=== PATIENT | male | born 1955 | race Hispanic/Latino ===

== ENCOUNTER 2018-12-24 18:15 | Emergency (ER) | payer OTHER ==
[2018-12-24] MEDS ORDERED: NACL 0.9% 1000 ML 1,000 ML IV ONE ×2 (19:57→22:00)
[2018-12-24 20:31] LABS: Basophils % (Auto) 0.3 % (0.0-1.8); Eosinophils % (Auto) 0.4 % (0.0-4.3); Hematocrit 23.2 % (35.5-45.6); Hemoglobin 7.3 gm/dl (11.8-15.2); Lymphocytes # (Auto) 0.6 K/mm3 (1.2-5.4); Lymphocytes % (Auto) 5.3 % (13.4-35.0); Mean Corpuscular HGB Conc 32 % (32-34); Mean Corpuscular Volume 75 fl (84-94); Monocytes # (Auto) 0.9 K/mm3 (0.0-0.8); Monocytes % (Auto) 7.5 % (0.0-7.3); Platelet Count 381 K/mm3 (140-440); Red Blood Count 3.09 M/mm3 (3.65-5.03)
[2018-12-24 20:33] LABS: Red Cell Distribution Width 20.2 % (13.2-15.2)
--- NOTE | 2018-12-24 20:40 | Emergency Department Report ---
ED General Adult HPI - General Chief complaint: Syncope Stated complaint: SYNCOPE Time Seen by Provider: 12/24/18 19:43 Source: EMS Mode of arrival: Stretcher Limitations: Language Barrier - History of Present Illness Initial comments: Patient presents to the emergency department for a near-syncopal episode. The patient was recently diagnosed with liver cancer and has 2 pet scan is scheduled for tomorrow at [place]. Patient was recently discharged from family on of last week. Today the patient became hypotensive after standing with systolic BP of 60. Patient denies any chest pain, shortness breath, or abdominal pain. -: Sudden Severity scale (0 -10): 0 Consistency: now resolved Improves with: none Worsens with: none Associated Symptoms: denies other symptoms Treatments Prior to Arrival: none - Related Data Home Medications Medication Instructions Recorded Confirmed Last Taken Omeprazole 40 mg PO DAILY 12/24/18 12/24/18 Unknown Allergies Allergy/AdvReac Type Severity Reaction Status Date / Time No Known Allergies Allergy Unverified 12/24/18 19:40 ED Review of Systems ROS: Stated complaint: SYNCOPE Other details as noted in HPI Comment: All other systems reviewed and negative Constitutional: denies: chills, fever Eyes: denies: eye pain, eye discharge, vision change ENT: denies: ear pain, throat pain Respiratory: denies: cough, shortness of breath, wheezing Cardiovascular: denies: chest pain, palpitations Endocrine: no symptoms reported Gastrointestinal: denies: abdominal pain, nausea, diarrhea Genitourinary: denies: urgency, dysuria Musculoskeletal: denies: back pain, joint swelling, arthralgia Skin: denies: rash, lesions Neurological: denies: headache, weakness, paresthesias Psychiatric: denies: anxiety, depression Hematological/Lymphatic: denies: easy bleeding, easy bruising ED Past Medical Hx - Past Medical History Previous Medical History?: Yes Hx of Cancer: Yes (Liver) Additional medical history: melanoma - Surgical History Past Surgical History?: Yes Hx Appendectomy: Yes - Social History Smoking Status: Never Smoker Substance Use Type: None - Medications Home Medications: Home Medications Medication Instructions Recorded Confirmed Last Taken Type Omeprazole 40 mg PO DAILY 12/24/18 12/24/18 Unknown History ED Physical Exam - General Limitations: Language Barrier General appearance: alert, in no apparent distress - Head Head exam: Present: atraumatic, normocephalic - Eye Eye exam: Present: normal appearance, PERRL, EOMI - ENT ENT exam: Present: mucous membranes moist - Neck Neck exam: Present: normal inspection - Respiratory Respiratory exam: Present: normal lung sounds bilaterally. Absent: respiratory distress, wheezes, rales, rhonchi - Cardiovascular Cardiovascular Exam: Present: regular rate, normal rhythm. Absent: systolic murmur, diastolic murmur, rubs, gallop - GI/Abdominal GI/Abdominal exam: Present: soft, normal bowel sounds. Absent: distended, tenderness - Rectal Rectal exam: Present: deferred - Extremities Exam Extremities exam: Present: normal inspection - Back Exam Back exam: Present: normal inspection - Neurological Exam Neurological exam: Present: alert, oriented X3, CN II-XII intact. Absent: motor sensory deficit - Psychiatric Psychiatric exam: Present: normal affect, normal mood - Skin Skin exam: Present: warm, dry, intact. Absent: rash ED Course Vital Signs 12/24/18 12/24/18 12/24/18 18:58 19:30 19:40 Temperature 98.1 F Pulse Rate 76 75 Respiratory 18 18 Rate Blood Pressure 104/70 Blood Pressure 103/57 [Left] O2 Sat by Pulse 100 98 Oximetry 12/24/18 12/24/18 12/24/18 19:44 19:46 20:00 Temperature Pulse Rate 73 71 74 Respiratory 10 L 16 12 Rate Blood Pressure 108/61 Blood Pressure [Left] O2 Sat by Pulse Oximetry 12/24/18 12/24/18 12/24/18 20:16 20:30 20:45 Temperature Pulse Rate 79 75 85 Respiratory 14 12 12 Rate Blood Pressure 92/53 91/53 Blood Pressure [Left] O2 Sat by Pulse Oximetry 12/24/18 12/24/18 12/24/18 21:00 21:15 21:31 Temperature Pulse Rate 76 89 81 Respiratory 12 21 18 Rate Blood Pressure 107/62 107/62 110/59 Blood Pressure [Left] O2 Sat by Pulse Oximetry 12/24/18 12/24/18 12/24/18 21:45 22:00 22:15 Temperature Pulse Rate 81 75 77 Respiratory 18 15 15 Rate Blood Pressure 88/49 103/63 103/63 Blood Pressure [Left] O2 Sat by Pulse Oximetry ED Medical Decision Making - Lab Data Result diagrams: 12/24/18 19:59 01/31/19 19:59 Lab Results 12/24/18 12/24/18 12/24/18 Range/Units 19:59 19:59 21:43 WBC 11.7 H (4.5-11.0) K/mm3 RBC 3.09 L (3.65-5.03) M/mm3 Hgb 7.3 L (11.8-15.2) gm/dl Hct 23.2 L (35.5-45.6) % MCV 75 L (84-94) fl MCH 24 L (28-32) pg MCHC 32 (32-34) % RDW 20.2 H (13.2-15.2) % Plt Count 381 (140-440) K/mm3 Lymph % (Auto) 5.3 L (13.4-35.0) % [place] % (Auto) 7.5 H (0.0-7.3) % Eos % (Auto) 0.4 (0.0-4.3) % Baso % (Auto) 0.3 (0.0-1.8) % Lymph # 0.6 L (1.2-5.4) K/mm3 [place] # 0.9 H (0.0-0.8) K/mm3 Eos # 0.0 (0.0-0.4) K/mm3 Baso # 0.0 (0.0-0.1) K/mm3 Seg Neutrophils % 86.5 H (40.0-70.0) % Seg Neutrophils # 10.1 H (1.8-7.7) K/mm3 Sodium 134 L (137-145) mmol/L Potassium 4.5 (3.6-5.0) mmol/L Chloride 98.8 (98-107) mmol/L Carbon Dioxide 28 (22-30) mmol/L Anion Gap 12 mmol/L BUN 18 (9-20) mg/dL Creatinine 1.1 (0.8-1.5) mg/dL Estimated GFR > 60 ml/min BUN/Creatinine Ratio 16 % Glucose 108 H (75-100) mg/dL Calcium 8.3 L (8.4-10.2) mg/dL Total Bilirubin 0.50 (0.1-1.2) mg/dL AST 15 (5-40) units/L ALT 15 (7-56) units/L Alkaline Phosphatase 54 (35-129) units/L Troponin T < 0.010 (0.00-0.029) ng/mL Total Protein 6.6 (6.3-8.2) g/dL Albumin 2.9 L (3.9-5) g/dL Albumin/Globulin Ratio 0.8 % Urine Color Yellow (Yellow) Urine Turbidity Clear (Clear) Urine pH 5.0 (5.0-7.0) Ur Specific [place] 1.008 (1.003-1.030) Urine Protein <15 mg/dl (Negative) mg/dL Urine Glucose (UA) Neg (Negative) mg/dL Urine Ketones Neg (Negative) mg/dL Urine Blood Neg (Negative) Urine Nitrite Neg (Negative) Urine Bilirubin Neg (Negative) Urine Urobilinogen < 2.0 (<2.0) mg/dL Ur Leukocyte Esterase Neg (Negative) Urine WBC (Auto) < 1.0 (0.0-6.0) /HPF Urine RBC (Auto) 1.0 (0.0-6.0) /HPF Urine Mucus Few /HPF 12/24/18 Range/Units 21:57 WBC (4.5-11.0) K/mm3 RBC (3.65-5.03) M/mm3 Hgb (11.8-15.2) gm/dl Hct (35.5-45.6) % MCV (84-94) fl MCH (28-32) pg MCHC (32-34) % RDW (13.2-15.2) % Plt Count (140-440) K/mm3 Lymph % (Auto) (13.4-35.0) % [place] % (Auto) (0.0-7.3) % Eos % (Auto) (0.0-4.3) % Baso % (Auto) (0.0-1.8) % Lymph # (1.2-5.4) K/mm3 [place] # (0.0-0.8) K/mm3 Eos # (0.0-0.4) K/mm3 Baso # (0.0-0.1) K/mm3 Seg Neutrophils % (40.0-70.0) % Seg Neutrophils # (1.8-7.7) K/mm3 Sodium (137-145) mmol/L Potassium (3.6-5.0) mmol/L Chloride (98-107) mmol/L Carbon Dioxide (22-30) mmol/L Anion Gap mmol/L BUN (9-20) mg/dL Creatinine (0.8-1.5) mg/dL Estimated GFR ml/min BUN/Creatinine Ratio % Glucose (75-100) mg/dL Calcium (8.4-10.2) mg/dL Total Bilirubin (0.1-1.2) mg/dL AST (5-40) units/L ALT (7-56) units/L Alkaline Phosphatase (35-129) units/L Troponin T < 0.010 (0.00-0.029) ng/mL Total Protein (6.3-8.2) g/dL Albumin (3.9-5) g/dL Albumin/Globulin Ratio % Urine Color (Yellow) Urine Turbidity (Clear) Urine pH (5.0-7.0) Ur Specific [place] (1.003-1.030) Urine Protein (Negative) mg/dL Urine Glucose (UA) (Negative) mg/dL Urine Ketones (Negative) mg/dL Urine Blood (Negative) Urine Nitrite (Negative) Urine Bilirubin (Negative) Urine Urobilinogen (<2.0) mg/dL Ur Leukocyte Esterase (Negative) Urine WBC (Auto) (0.0-6.0) /HPF Urine RBC (Auto) (0.0-6.0) /HPF Urine Mucus /HPF Lab Results 12/24/18 12/24/18 12/24/18 Range/Units 19:59 19:59 21:43 WBC 11.7 H (4.5-11.0) K/mm3 RBC 3.09 L (3.65-5.03) M/mm3 Hgb 7.3 L (11.8-15.2) gm/dl Hct 23.2 L (35.5-45.6) % MCV 75 L (84-94) fl MCH 24 L (28-32) pg MCHC 32 (32-34) % RDW 20.2 H (13.2-15.2) % Plt Count 381 (140-440) K/mm3 Lymph % (Auto) 5.3 L (13.4-35.0) % [place] % (Auto) 7.5 H (0.0-7.3) % Eos % (Auto) 0.4 (0.0-4.3) % Baso % (Auto) 0.3 (0.0-1.8) % Lymph # 0.6 L (1.2-5.4) K/mm3 [place] # 0.9 H (0.0-0.8) K/mm3 Eos # 0.0 (0.0-0.4) K/mm3 Baso # 0.0 (0.0-0.1) K/mm3 Seg Neutrophils % 86.5 H (40.0-70.0) % Seg Neutrophils # 10.1 H (1.8-7.7) K/mm3 Sodium 134 L (137-145) mmol/L Potassium 4.5 (3.6-5.0) mmol/L Chloride 98.8 (98-107) mmol/L Carbon Dioxide 28 (22-30) mmol/L Anion Gap 12 mmol/L BUN 18 (9-20) mg/dL Creatinine 1.1 (0.8-1.5) mg/dL Estimated GFR > 60 ml/min BUN/Creatinine Ratio 16 % Glucose 108 H (75-100) mg/dL Calcium 8.3 L (8.4-10.2) mg/dL Total Bilirubin 0.50 (0.1-1.2) mg/dL AST 15 (5-40) units/L ALT 15 (7-56) units/L Alkaline Phosphatase 54 (35-129) units/L Troponin T < 0.010 (0.00-0.029) ng/mL Total Protein 6.6 (6.3-8.2) g/dL Albumin 2.9 L (3.9-5) g/dL Albumin/Globulin Ratio 0.8 % Urine Color Yellow (Yellow) Urine Turbidity Clear (Clear) Urine pH 5.0 (5.0-7.0) Ur Specific [place] 1.008 (1.003-1.030) Urine Protein <15 mg/dl (Negative) mg/dL Urine Glucose (UA) Neg (Negative) mg/dL Urine Ketones Neg (Negative) mg/dL Urine Blood Neg (Negative) Urine Nitrite Neg (Negative) Urine Bilirubin Neg (Negative) Urine Urobilinogen < 2.0 (<2.0) mg/dL Ur Leukocyte Esterase Neg (Negative) Urine WBC (Auto) < 1.0 (0.0-6.0) /HPF Urine RBC (Auto) 1.0 (0.0-6.0) /HPF Urine Mucus Few /HPF 12/24/18 Range/Units 21:57 WBC (4.5-11.0) K/mm3 RBC (3.65-5.03) M/mm3 Hgb (11.8-15.2) gm/dl Hct (35.5-45.6) % MCV (84-94) fl MCH (28-32) pg MCHC (32-34) % RDW (13.2-15.2) % Plt Count (140-440) K/mm3 Lymph % (Auto) (13.4-35.0) % [place] % (Auto) (0.0-7.3) % Eos % (Auto) (0.0-4.3) % Baso % (Auto) (0.0-1.8) % Lymph # (1.2-5.4) K/mm3 [place] # (0.0-0.8) K/mm3 Eos # (0.0-0.4) K/mm3 Baso # (0.0-0.1) K/mm3 Seg Neutrophils % (40.0-70.0) % Seg Neutrophils # (1.8-7.7) K/mm3 Sodium (137-145) mmol/L Potassium (3.6-5.0) mmol/L Chloride (98-107) mmol/L Carbon Dioxide (22-30) mmol/L Anion Gap mmol/L BUN (9-20) mg/dL Creatinine (0.8-1.5) mg/dL Estimated GFR ml/min BUN/Creatinine Ratio % Glucose (75-100) mg/dL Calcium (8.4-10.2) mg/dL Total Bilirubin (0.1-1.2) mg/dL AST (5-40) units/L ALT (7-56) units/L Alkaline Phosphatase (35-129) units/L Troponin T < 0.010 (0.00-0.029) ng/mL Total Protein (6.3-8.2) g/dL Albumin (3.9-5) g/dL Albumin/Globulin Ratio % Urine Color (Yellow) Urine Turbidity (Clear) Urine pH (5.0-7.0) Ur Specific [place] (1.003-1.030) Urine Protein (Negative) mg/dL Urine Glucose (UA) (Negative) mg/dL Urine Ketones (Negative) mg/dL Urine Blood (Negative) Urine Nitrite (Negative) Urine Bilirubin (Negative) Urine Urobilinogen (<2.0) mg/dL Ur Leukocyte Esterase (Negative) Urine WBC (Auto) (0.0-6.0) /HPF Urine RBC (Auto) (0.0-6.0) /HPF Urine Mucus /HPF - EKG Data -: EKG Interpreted by Me EKG shows normal: sinus rhythm Rate: normal - Medical Decision Making After 2 L of fluids the patient's orthostatics are as follow Lying heart rate 82 BP 107/69 Sitting heart rate 82 BP 104/71 Standing heart rate 92 BP 108/68 Glucose was also patient's family admission also but a platelet declined because he wanted the father to get his PET scans in the morning Critical care attestation.: If time is entered above; I have spent that time in minutes in the direct care of this critically ill patient, excluding procedure time. ED Disposition Clinical Impression: Orthostatic hypotension, Near syncope Disposition: DC-01 TO HOME OR SELFCARE Is pt being admited?: No Does the pt Need Aspirin: No Condition: Stable Instructions: Hypotension (ED) Additional Instructions: return if worse Referrals: VICENTE ORR MD [Primary Care Provider] - 3-5 Days Time of Disposition: 23:05
--- NOTE | 2018-12-24 20:40 | XRay Report ---
FINAL REPORT PROCEDURE: XR CHEST 1V AP TECHNIQUE: Chest radiograph anteroposterior view. CPT 92007 HISTORY: near syncope COMPARISON: No prior studies are available for comparison. FINDINGS: Heart: Normal. Mediastinum/Vessels: Normal. Lungs/Pleural space: Normal. Bony thorax: No acute osseous abnormality. Life support devices: None. IMPRESSION: No acute cardiopulmonary abnormality.
[2018-12-24 20:49] LABS: Alanine Aminotransferase 15 units/L (7-56); Albumin 2.9 g/dL (3.9-5); BUN/Creatinine Ratio 16; Blood Urea Nitrogen 18 mg/dL (9-20); Calcium 8.3 mg/dL (8.4-10.2); Hemolysis Index 0
[2018-12-24 22:15] LABS: Bilirubin,Urine NEG (Negative); Blood,Urine NEG (Negative); Color,Urine Yellow (Yellow); Mucus,Urine FEW /HPF; Protein,Urine <15 mg/dL mg/dL (Negative); Urobilinogen,Urine < 2.0 mg/dL (<2.0); WBC,Urine < 1.0 /HPF (0.0-6.0)
[2018-12-24 23:26] VITALS: BP 107/69
== END 2018-12-24 23:29 | disposition home or self-care (01) ==
LOC: ED 18:15
DX: I95.1 Orthostatic hypotension (principal); Z85.05 Personal history of malignant neoplasm of liver; Z90.89 Acquired absence of other organs
CPT/HCPCS: 36415; 71045; 80053; 81001; 84484; 85025; 93005; 93010; 96360; 96361; 99284; J7030

== ENCOUNTER 2021-07-16 14:53 | Inpatient (IN) | payer OTHER ==
[2021-07-16] MEDS ORDERED: HYDROcodone/ACETAMINOPHEN 10-325MG TAB PO ONE (17:11)
--- NOTE | 2021-07-16 17:52 | Emergency Department Report ---
Blank Doc - Documentation Documentation: 65-year-old male that presents with left sided hip/back pain status post fall. Denies any other injuries or complaints. 1- This is a initial triage assessment/medical screening only. Full assessment and work-up will be completed once the patient is in proper hospital gown, ED bed and in a private room setting. This initial assessment/diagnostic orders/clinical plan/ treatment(s) is/are subject to change based on pt's health status, clinical progression and re-assessment by fellow clinical providers in the ED. Further treatment and workup at subsequent clinical providers discretion. Patient/guardians urged not to elope from ED as their condition may be serious if not clinically assessed and managed. 2-imaging studies
--- NOTE | 2021-07-16 18:01 | Cat Scan Report ---
CT LUMBAR SPINE WITHOUT CONTRAST INDICATION: Left sided pain after fall today.. TECHNIQUE: Axial CT images of the spine were obtained. Sagittal and coronal reformatted images were produced. Al l CT scans at this location are performed using CT dose reduction for ALARA by means of automated exp osure control. COMPARISON: None available. FINDINGS: ACUTE FRACTURE(S) OR SUBLUXATION: None. SPINAL DEGENERATIVE CHANGES: There is moderate degenerative disc disease at L3-4, L4-5, and L5-S1 wit h disc height loss and reactive endplate sclerosis and osteophyte formation. PARASPINAL SOFT TISSUES: No soft tissue swelling or other acute abnormalities. ADDITIONAL FINDINGS: No significant additional findings. IMPRESSION: 1. No acute fracture or subluxation in the spine in neutral position. Signer Name: Joselo Wilkinson MD Signed: 07/16/2021 5:56 PM Workstation Name: [id number]
--- NOTE | 2021-07-16 18:03 | Cat Scan Report ---
CT PELVIS WITHOUT CONTRAST INDICATION / CLINICAL INFORMATION: Left sided pain after fall today.. TECHNIQUE: Axial CT images were obtained through the pelvis without contrast. All CT scans at this [facility] are performed using CT dose reduction for ALARA by means of automated exposure control. COMPARISON: None available. FINDINGS: BOWEL: There is diverticulosis without diverticulitis. APPENDIX: Not seen PERITONEUM: No free fluid. No free air. No fluid collection. LYMPH NODES: No significant adenopathy. ARTERIES: No significant abnormality. VEINS: No significant abnormality. URINARY BLADDER: No significant abnormality. REPRODUCTIVE ORGANS: No significant abnormality. ADDITIONAL FINDINGS: None. SKELETAL SYSTEM: There is a completely displaced fracture of the left subcapital neck with about quar ter shaft width of superior displacement. IMPRESSION: 1. There is a completely displaced fracture of the left subcapital neck with about quarter shaft widt h of superior displacement. Signer Name: Thanh Lopez DO Signed: 07/16/2021 5:59 PM Workstation Name: [id number]
[2021-07-16] MEDS ORDERED: LACTATED RINGERS 500 ML IV ONE (18:12)
[2021-07-16] MEDS ORDERED: MORPHINE 4 MG/1 ML INJ IV ONE (18:12)
[2021-07-16] MEDS ORDERED: ACETAMINOPHEN 325 MG TAB PO ONE ×2 (18:12→22:19)
--- NOTE | 2021-07-16 18:22 | Emergency Department Report ---
ED Lower Extremity HPI - General Chief Complaint: Fall Stated Complaint: BACK PAINS FALL INJURY Time Seen by Provider: 07/16/21 17:08 Source: patient, family Mode of arrival: Wheelchair Limitations: Physical Limitation - History of Present Illness Initial Comments: The patient was evaluated in the emergency department for symptoms described in the history of present illness. He/she was evaluated in the context of the global COVID-19 pandemic, which necessitated consideration that the patient might be at risk for infection with the virus that causes COVID-19. Institutional protocols and algorithms that pertain to the evaluation of patients at risk for COVID-19 are in a state of rapid change based on information released by regulatory bodies including the CDC and federal and state organizations. These policies and algorithms were followed during the patient's care in the emergency department. Please note that these policies, procedures and recommendations changed on a rapid basis. Primary CARE doctor: Paul ludwig Past medical history: Melanoma, diagnosed in 2019. Up-to-date with COVID-19 vaccination. Patient is accompanied by his son Joe Palomo. The patient has indicated that he would like his son to translate for him, and assist with acquisition of the history of present illness. Please note that this provider is also conversant in Thai. The patient is a 65-year-old gentleman who presents to the ER with traumatic left proximal hip pain after mechanical fall. The pain does not radiate anywhere. The pain increases with palpation and range of motion. The patient's pain decreases with rest. The patient indicates that he had a mechanical fall at work. Prior to the fall, the patient is not having any symptoms. The patient did not hit his head or neck. He denies weakness and numbness. He denies additional injuries and complaints. He specifically denies headache, neck pain, chest pain, abdominal pain, shortness of breath, urinary symptoms, loss of taste and smell, weakness and numbness. Patient has 2 sons Chino Z : [phone] Joe Z: [phone] Complaint: hip injury -: Sudden, hour(s) Injury: Pelvis: Left, Thigh: Left, Leg: Left Type of Injury: blunt Place: work Severity: moderate Improves With: rest Worsens With: movement, palpation Context: fall, direct blow - Related Data Home Medications Medication Instructions Recorded Confirmed Last Taken Omeprazole 40 mg PO DAILY 12/24/18 12/24/18 Unknown Allergies Allergy/AdvReac Type Severity Reaction Status Date / Time No Known Allergies Allergy Verified 07/16/21 17:01 ED Review of Systems ROS: Stated complaint: BACK PAINS FALL INJURY Other details as noted in HPI Constitutional: denies: fever Eyes: denies: eye discharge ENT: denies: epistaxis Respiratory: denies: cough Cardiovascular: denies: chest pain Gastrointestinal: denies: abdominal pain Genitourinary: denies: dysuria Musculoskeletal: arthralgia, myalgia Neurological: denies: weakness ED Past Medical Hx - Past Medical History Hx of Cancer: Yes (M) Additional medical history: melanoma - Surgical History Hx Appendectomy: Yes - Social History Smoking Status: Never Smoker Substance Use Type: None - Medications Home Medications: Home Medications Medication Instructions Recorded Confirmed Last Taken Type Omeprazole 40 mg PO DAILY 12/24/18 12/24/18 Unknown History ED Physical Exam - General Limitations: No Limitations, Physical Limitation General appearance: alert, in no apparent distress - Head Head exam: Present: atraumatic, normocephalic - Eye Eye exam: Present: normal appearance, EOMI. Absent: nystagmus - ENT ENT exam: Present: normal exam, normal orophraynx, mucous membranes moist, normal external ear exam - Neck Neck exam: Present: normal inspection, full ROM. Absent: tenderness, meningis mus - Respiratory Respiratory exam: Present: normal lung sounds bilaterally. Absent: respiratory distress, wheezes, rales, rhonchi, stridor, decreased breath sounds - Cardiovascular Cardiovascular Exam: Present: regular rate, normal rhythm, normal heart sounds. Absent: bradycardia, tachycardia, irregular rhythm, systolic murmur, diastolic murmur, rubs, gallop - GI/Abdominal GI/Abdominal exam: Present: soft. Absent: distended, tenderness, guarding, rebound, rigid, pulsatile mass - Rectal Rectal exam: Present: deferred - Extremities Exam Extremities exam: Present: normal inspection, full ROM (Full range of motion in the bilateral arms, and right leg. Left ankle and knee range of motion intact.) , tenderness (There is proximal left hip and thigh tenderness), other (2+ pulses noted in the bilateral upper and lower extremities. The pelvis is stable. There is left proximal hip tenderness. Bilateral knees and ankles are nontender. Bilateral upper extremities nontender.). Absent: calf tenderness - Back Exam Back exam: Present: normal inspection. Absent: tenderness, CVA tenderness (R), CVA tenderness (L), paraspinal tenderness, vertebral tenderness - Neurological Exam Neurological exam: Present: alert, oriented X3, other (No facial droop. Tongue midline. Extraocular movements intact bilaterally. Facial sensation intact to light touch in V1, V2, V3 distribution bilaterally. 5 and a 5 strength in 4 ext remities. Sensation intact to light touch in 4 extremities.). Absent: motor sensory deficit - Psychiatric Psychiatric exam: Present: normal affect, normal mood - Skin Skin exam: Present: warm, dry, intact, normal color. Absent: rash ED Course Vital Signs 07/16/21 17:05 Temperature 97.6 F Pulse Rate 86 Respiratory 24 Rate Blood Pressure 144/97 O2 Sat by Pulse 99 Oximetry ED Lower Extremity MDM - Lab Data Result diagrams: 07/16/21 18:24 07/16/21 18:24 Vital Signs 07/16/21 17:05 Temperature 97.6 F Pulse Rate 86 Respiratory 24 Rate Blood Pressure 144/97 O2 Sat by Pulse 99 Oximetry Lab Results 07/16/21 07/16/21 07/16/21 Range/Units 18:24 18:24 18:24 WBC 14.9 H (4.5-11.0) K/mm3 RBC 4.80 (3.65-5.03) M/mm3 Hgb 14.6 (11.8-15.2) gm/dl Hct 43.7 (35.5-45.6) % MCV 91 (84-94) fl MCH 30 (28-32) pg MCHC 33 (32-34) % RDW 14.3 (13.2-15.2) % Plt Count 192 (140-440) K/mm3 PT 12.4 (12.2-14.9) Sec. INR 0.88 (0.87-1.13) Sodium 138 (137-145) mmol/L Potassium 4.2 (3.6-5.0) mmol/L Chloride 102.0 (98-107) mmol/L Carbon Dioxide 23 (22-30) mmol/L Anion Gap 17 mmol/L BUN 20 (9-20) mg/dL Creatinine 1.1 (0.8-1.3) mg/dL Estimated GFR > 60 ml/min BUN/Creatinine Ratio 18 % Glucose 113 H (75-100) mg/dL Calcium 9.2 (8.4-10.2) mg/dL Magnesium 1.70 (1.7-2.3) mg/dL Total Creatine Kinase 277 H (55-170) units/L - Radiology Data Radiology results: report reviewed, image reviewed CT PELVIS WITHOUT CONTRAST INDICATION / CLINICAL INFORMATION: Left sided pain after fall today.. TECHNIQUE: Axial CT images were obtained through the pelvis without contrast. All CT scans at this location are performed using CT dose reduction for ALARA by means of automated exposure control. COMPARISON: None available. FINDINGS: BOWEL: There is diverticulosis without diverticulitis. APPENDIX: Not seen PERITONEUM: No free fluid. No free air. No fluid collection. LYMPH NODES: No significant adenopathy. ARTERIES: No significant abnormality. VEINS: No significant abnormality. URINARY BLADDER: No significant abnormality. REPRODUCTIVE ORGANS: No significant abnormality. ADDITIONAL FINDINGS: None. SKELETAL SYSTEM: There is a completely displaced fracture of the left subcapital neck with about quarter shaft width of superior displacement. IMPRESSION: 1. There is a completely displaced fracture of the left subcapital neck with about quarter shaft width of superior displacement. Signer Name: Thanh Lopez DO Signed: 07/16/2021 4:59 PM Workstation Name: [employer] CT LUMBAR SPINE WITHOUT CONTRAST INDICATION: Left sided pain after fall today.. TECHNIQUE: Axial CT images of the spine were obtained. Sagittal and coronal reformatted images were produced. All CT scans at this location are performed using CT dose reduction for ALARA by means of automated exposure control. COMPARISON: None available. FINDINGS: ACUTE FRACTURE(S) OR SUBLUXATION: None. SPINAL DEGENERATIVE CHANGES: There is moderate degenerative disc disease at L3- 4, L4-5, and L5-S1 with disc height loss and reactive endplate sclerosis and osteophyte formation. PARASPINAL SOFT TISSUES: No soft tissue swelling or other acute abnormalities. ADDITIONAL FINDINGS: No significant additional findings. IMPRESSION: 1. No acute fracture or subluxation in the spine in neutral position. Signer Name: Joselo Wilkinson MD Signed: 07/16/2021 4:56 PM Workstation Name: [id number] PELVIS 1 VIEW(S) INDICATION / CLINICAL INFORMATION: left hip pain fall, left femur fracture COMPARISON: CT scan of the pelvis from earlier in the day FIND INGS: BONES / JOINT(S): There is a displaced complete fracture of the subcapital left femur, better evaluated on CT. No significant arthritis. SOFT TISSUES: No significant abnormality. ADDITIONAL FINDINGS: None. Signer Name: Thanh Lopez DO Signed: 07/16/2021 5:51 PM Workstation Name: [id number] LEFT FEMUR 2 VIEW(S) INDICATION / CLINICAL INFORMATION: left femur fx, pain COMPARISON: Pelvic radiograph and pelvic CT from earlier in the day FINDINGS: BONES / JOINT(S): Redemonstrated complete transverse fracture through the subcapital proximal femur. There is superior displacement. No significant arthritis. SOFT TISSUES: No significant abnormality. ADDITIONAL FINDINGS: None. Signer Name: Thanh Lopez DO Signed: 07/16/2021 6:15 PM Workstation Name: [email or web address] - Medical Decision Making Differential diagnosis, including but not limited to: Fall, fracture, dislocation Assessment and plan: 65-year-old gentleman, with isolated left femur fracture status post fall, clinically sober with a GCS of 15, with no injury to the head or cervical spine, who is up-to-date with COVID-19 vaccination, who denies additional medical complaints, who is also neurovascularly intact. There is no midline spinal tenderness or step-offs. CT scan of the lumbar spine, and CT scan of the pelvis were obtained prior to my personal evaluation. CT scan of the lumbar spine negative for acute findings. CT scan of the pelvis shows the following findings: 1. There is a completely displaced fracture of the left subcapital neck with about quarter shaft width of superior displacement. Have discussed the patient's history, physical, imaging findings with our orthopedist on-call, Dr. Vanessa. He requests plain films. He will follow in consultation. Dr. Burkett to admit patient to the medical service. Appropriate laboratory studies ordered. Contacted [facility], and discussed the case with their coordinating physician, Dr. Moncada She has authorized for this patient to be admitted to this medical service. I discussed the plan of care with the patient and his son. They have articulated understanding. All questions answered. Critical care attestation.: If time is entered above; I have spent that time in minutes in the direct care of this critically ill patient, excluding procedure time. ED Disposition Clinical Impression: Fall, Femur fracture, left, COVID-19 vaccine series completed Disposition: 09 ADMITTED INPATIENT Is pt being admited?: Yes Does the pt Need Aspirin: No Condition: Good
[2021-07-16] MEDS ORDERED: ONDANSETRON 4 MG/2 ML INJ IV PRN (18:30)
[2021-07-16] MEDS ORDERED: ALBUTEROL 2.5 MG/3 ML NEBU IH PRN (18:30)
[2021-07-16] MEDS ORDERED: ACETAMINOPHEN 325 MG TAB PO PRN (18:30)
--- NOTE | 2021-07-16 18:30 | History and Physical Report ---
History of Present Illness Chief complaint: I fell History of present illness: 65 YO Male with Obesity, Melanoma presents to ED for evaluation. Patient reports "I fell at work". Patient states that he was in his usual state of health and tripped and fell while at work and landed on his left hip. Patient reports experiencing pain and was unable to rise to a standing position and bear weight on his left leg. Patient transported to [facility] via private vehicle for further care and evaluation of the aforementioned symptoms. The patient was seen and evaluated in the emergency department. Lab and imaging studies revi ewed. Patient underwent CT scan of the left leg and was found to have a left femur fracture. Patient admitted to medical floor. Orthopedic surgery service consulted. Patient has fever, chills, chest pain, palpitation, productive cough, skin rash, recent ill contacts, or known exposure to COVID-19. No prior admission for review. All medication listed at time of admission has been reconciled. Advanced care planning conducted in ED. Past History Past Medical History: cancer Past Surgical History: appendectomy Social history: . denies: smoking, alcohol abuse, prescription drug abuse Family history: hypertension Medications and Allergies Allergies Allergy/AdvReac Type Severity Reaction Status Date / Time No Known Allergies Allergy Verified 07/16/21 17:01 Home Medications Medication Instructions Recorded Confirmed Last Taken Type Omeprazole 40 mg PO DAILY 12/24/18 12/24/18 Unknown History Active Meds: Active Medications Lactated Ringer's (Lactated Ringers) 500 mls @ 999 mls/hr IV BOLUS ONE Stop: 07/16/21 18:42 Review of Systems Constitutional: no weight loss, no weight gain, no chills, no sweats Ears, nose, mouth and throat: no ear pain, no tinnitis, no decreased hearing, no nasal congestion, no nasal discharge, no sinus pressure Cardiovascular: no chest pain, no orthopnea, no palpitations, no lightheadedness, no shortness of breath Respiratory: no cough, no cough with sputum, no hemoptysis, no shortness of breath Gastrointestinal: no abdominal pain, no vomiting, no diarrhea, no change in bowel habits, no hematemesis, no coffee ground emesis Genitourinary Male: no hematuria, no flank pain, no discharge, no urinary frequency, no urinary hesitancy, no nocturia Rectal: no pain, no incontinence, no bleeding Musculoskeletal: no neck stiffness, no shooting arm pain, no arm numbness/tingling, no shooting leg pain, no leg numbness/tingling Integumentary: no rash, no pruritis, no redness, no sores, no wounds, no jaundice, no boils Neurological: no head injury, no transient paralysis, no weakness, no parathesias, no tingling, no seizures, no syncope, no tremors Psychiatric: no anxiety, no memory loss, no hypersomnia, no change in libido, no suicidal ideation, no disorientation Endocrine: no cold intolerance, no heat intolerance, no polydipsia, no polyuria, no excessive sweating Hematologic/Lymphatic: no easy bruising, no easy bleeding, no lymphadenopathy Allergic/Immunologic: no allergic rhinitis, no persistent infections, no anaphylaxis, no angioedema Exam - Constitutional Vitals: Temp Pulse Resp BP Pulse Ox 97.6 F 86 24 144/97 99 07/16/21 17:05 07/16/21 17:05 07/16/21 17:05 07/16/21 17:05 07/16/21 17:05 General appearance: Present: mild distress, obese - EENT Eyes: Present: PERRL ENT: hearing intact, clear oral mucosa - Neck Neck: Present: supple, normal ROM - Respiratory Respiratory effort: normal Respiratory: bilateral: CTA - Cardiovascular Heart Sounds: Present: S1 & S2. Absent: rub, click - Extremities Extremities: pulses symmetrical, No edema, abnormal (Left leg pain) Peripheral Pulses: within normal limits - Abdominal General gastrointestinal: Present: soft, non-tender, non-distended, normal bowel sounds Male genitourinary: Present: normal - Integumentary Integumentary: Present: clear, warm, dry - Musculoskeletal Musculoskeletal: gait normal, strength equal bilaterally - Psychiatric Psychiatric: appropriate mood/affect, intact judgment & insight - Neurologic Neurologic: CNII-XII intact, moves all extremities Results - Labs CBC & Chem 7: 07/16/21 18:24 07/16/21 18:24 Assessment and Plan - Patient Problems (1) Femur fracture, left Current Visit: No Status: Acute Plan to address problem: Orthopedic surgery service consulted, CT scan left lower extremity, pain control, supportive care, physical therapy consulted, patient pending surgical intervention as per surgical team. (2) Obesity hypoventilation syndrome Current Visit: Yes Status: Acute Plan to address problem: Balanced diet, increase physical activity at discharge, outpatient pulmonary follow-up for sleep study. (3) COVID-19 vaccine series completed Current Visit: No Status: Acute (4) DVT prophylaxis Current Visit: Yes Status: Acute Plan to address problem: SCDs bilateral lower extremities while in bed (5) Advance care planning Current Visit: Yes Status: Acute Plan to address problem: Disease education conducted, care plan discussed, diagnosis discussed, prognosis discussed, patient is full code, patient and family knowledge understanding agreement with care plan, +30 minutes.
[2021-07-16 18:47] LABS: Hematocrit 43.7 % (35.5-45.6); Hemoglobin 14.6 gm/dl (11.8-15.2); Mean Corpuscular HGB Conc 33 % (32-34); Mean Corpuscular Volume 91 fl (84-94); Platelet Count 192 K/mm3 (140-440); Red Cell Distribution Width 14.3 % (13.2-15.2)
--- NOTE | 2021-07-16 18:55 | XRay Report ---
PELVIS 1 VIEW(S) INDICATION / CLINICAL INFORMATION: left hip pain fall, left femur fracture COMPARISON: CT scan of the pelvis from earlier in the day FINDINGS: BONES / JOINT(S): There is a displaced complete fracture of the subcapital left femur, better evaluat ed on CT. No significant arthritis. SOFT TISSUES: No significant abnormality. ADDITIONAL FINDINGS: None. Signer Name: Thanh Lopez DO Signed: 07/16/2021 6:51 PM Workstation Name: [id number]
[2021-07-16 18:57] LABS: INR 0.88 (0.87-1.13)
[2021-07-16 18:58] LABS: BUN/Creatinine Ratio 18; Blood Urea Nitrogen 20 mg/dL (9-20); Calcium 9.2 mg/dL (8.4-10.2); Hemolysis Index 10
--- NOTE | 2021-07-16 19:20 | XRay Report ---
LEFT FEMUR 2 VIEW(S) INDICATION / CLINICAL INFORMATION: left femur fx, pain COMPARISON: Pelvic radiograph and pelvic CT from earlier in the day FINDINGS: BONES / JOINT(S): Redemonstrated complete transverse fracture through the subcapital proximal femur. There is superior displacement. No significant arthritis. SOFT TISSUES: No significant abnormality. ADDITIONAL FINDINGS: None. Signer Name: Thanh Lopez DO Signed: 07/16/2021 7:15 PM Workstation Name: [employer]
[2021-07-16] MEDS ORDERED: FLUTICASONE PROPIONATE NASAL SPRAY 16 GM NS PRN (22:01)
[2021-07-16] MEDS ORDERED: LACTATED RINGERS 1,000 ML IV ONE (22:18)
[2021-07-16] MEDS: oxyCODONE /ACETAMINOPHEN 5-325MG TAB PO PRN (22:28)
[2021-07-17] MEDS: HYDROmorphone 1 MG/1 ML INJ IV PRN ×3 (03:09→07:48)
[2021-07-17 06:02] LABS: BUN/Creatinine Ratio 18; Blood Urea Nitrogen 16 mg/dL (9-20); Calcium 8.4 mg/dL (8.4-10.2); Hemolysis Index 41
[2021-07-17] MEDS ORDERED: NON-FORMULARY EACH (Omeprazole [Omeprazole] 40 MG Capsule.Dr) PO SCH (10:00)
[2021-07-17] MEDS: PANTOPRAZOLE 40 MG TAB PO SCH (10:16)
--- NOTE | 2021-07-17 12:21 | Anesthesia Day of Surgery ---
Anesthesia Day of Surgery - Day of Surgery Patient Examined: Yes Patient H&P Reviewed: Yes Patient is NPO: Yes
--- NOTE | 2021-07-17 12:26 | Anesthesia Consultation ---
Anesthesia Consult and Med Hx Date of service: 07/17/21 - Airway Anesthetic Teeth Evaluation: Good ROM Head & Neck: Adequate Mental/Hyoid Distance: Adequate Mallampati Class: Class II Intubation Access Assessment: Good - Pre-Operative Health Status ASA Pre-Surgery Classification: ASA2 Proposed Anesthetic Plan: General - Pulmonary Hx Smoking: No - Cardiovascular System Hx Hypertension: No - Gastrointestinal Hx Gastroesophageal Reflux Disease: Yes - Hematic Hx Anemia: No - Additional Comments Anesthesia Medical History Comments: Spoke with patient's son on the phone who translated
[2021-07-17] MEDS: SODIUM CHLORIDE 0.9% 1000 ML 1,000 ML IV SCH ×2 (12:35→20:43)
[2021-07-17] MEDS ORDERED: TRANEXAMIC ACID 1,000 MG/10 ML ONE (12:40)
[2021-07-17] MEDS ORDERED: MORPHINE 10 MG/1 ML INJ ONE (12:40)
[2021-07-17] MEDS ORDERED: BUPIVACAINE/PF (0.5%) 5 MG/1 ML 30 ML VIAL INFILTRATI ONE ×2 (12:40→13:55)
[2021-07-17] MEDS ORDERED: SODIUM CHLORIDE 0.9% 100 ML ONE (12:41)
[2021-07-17] MEDS ORDERED: KETOROLAC 30 MG/1 ML INJ ONE (12:41)
[2021-07-17] MEDS ORDERED: propofoL 200 MG/20 ML VIAL IV ONE (12:46)
[2021-07-17] MEDS ORDERED: LIDOCAINE MPF (2%) 20 MG/1 ML VIAL 5 ML ONE (12:49)
[2021-07-17] MEDS ORDERED: SUCCINYLCHOLINE CHLORIDE 200 MG/10 ML INJ MDV ONE (12:59)
[2021-07-17] MEDS ORDERED: fentaNYL 100 MCG/2 ML INJ ONE (12:59)
[2021-07-17] MEDS ORDERED: ceFAZolin/STERILE WATER 2 GM/20 ML SYRINGE IV NR (13:00)
[2021-07-17] MEDS ORDERED: HYDROmorphone 1 MG/1 ML INJ ONE (13:38)
[2021-07-17] MEDS ORDERED: SODIUM CHLORIDE 0.9% IRR 1,000 ML BOTTLE IR ONE (13:54)
[2021-07-17] MEDS ORDERED: TRANEXAMIC ACID 1,000 MG/10 ML IV ONE (13:54)
[2021-07-17] MEDS ORDERED: KETOROLAC 30 MG/1 ML INJ IV ONE (13:55)
[2021-07-17] MEDS ORDERED: SODIUM CHLORIDE 0.9% 100 ML IVPB IV ONE (13:55)
[2021-07-17] MEDS ORDERED: MORPHINE 10 MG/1 ML INJ IM ONE (13:55)
[2021-07-17] MEDS ORDERED: PHENYLEPHRINE/NS 1,000 MCG/10 ML SYRINGE (OR USE) IV ONE (14:30)
[2021-07-17] MEDS ORDERED: ONDANSETRON 4 MG/2 ML INJ ONE (14:32)
--- NOTE | 2021-07-17 14:53 | Consultation ---
History of Present Illness - [facility] Consult date: 07/17/21 Consult reason: fracture History of present illness: 65 YO Male with Obesity, Melanoma presents to ED for evaluation. Patient reports "I fell at work". Patient states that he was in his usual state of health and tripped and fell while at work and landed on his left hip. Patient reports experiencing pain and was unable to rise to a standing position and bear weight on his left leg. He was brought to [facility] ED where plain xrays/CT scan revealed displaced left femoral neck fracture... Past History Past Medical History: cancer Past Surgical History: appendectomy Social history: . denies: smoking, alcohol abuse, prescription drug abuse Family history: hypertension Medications and Allergies Allergies Allergy/AdvReac Type Severity Reaction Status Date / Time No Known Allergies Allergy Verified 07/16/21 17:01 Home Medications Medication Instructions Recorded Confirmed Last Taken Type Omeprazole 40 mg PO DAILY 12/24/18 12/24/18 Unknown History Active Meds: Active Medications Acetaminophen (Acetaminophen 325 Mg Tab) 650 mg PO Q4H PRN PRN Reason: Pain MILD(1-3)/Fever >100.5/MOTTA Albuterol (Albuterol 2.5 Mg/3 Ml Nebu) 2.5 mg IH Q4HRT PRN PRN Reason: Shortness Of Breath Cefazolin Sodium (Cefazolin/Sterile Water 2 Gm/20 Ml Syringe) 2 gm IV PREOP NR Stop: 07/17/21 23:59 Fluticasone Propionate (Fluticasone Propionate Nasal [place] 16 Gm) 100 mcg NS QDAY PRN PRN Reason: Congestion Hydromorphone HCl (Hydromorphone 1 Mg/1 Ml Inj) 0.5 mg IV Q3H PRN PRN Reason: Pain , Severe (7-10) Last Admin: 07/17/21 07:48 Dose: 0.5 mg Documented by: Sodium Chloride (Nacl 0.9% 1000 Ml) 1,000 mls @ 75 mls/hr IV DIRECT JOSE Last Admin: 07/17/21 12:35 Dose: 75 mls/hr Documented by: Ondansetron HCl (Ondansetron 4 Mg/2 Ml Inj) 4 mg IV Q8H PRN PRN Reason: Nausea And Vomiting Last Admin: 07/16/21 20:03 Dose: 4 mg Documented by: Oxycodone/Acetaminophen (Oxycodone /Acetaminophen 5-325mg Tab) 1 tab PO Q6H PRN PRN Reason: Pain, Moderate (4-6) Last Admin: 07/16/21 22:28 Dose: 1 tab Documented by: Pantoprazole Sodium (Pantoprazole 40 Mg Tab) 40 mg PO DAILY [facility] Last Admin: 07/17/21 10:16 Dose: 40 mg Documented by: Sodium Chloride (Sodium Chloride 0.9% 10 Ml Flush Syringe) 10 ml IV BID [facility] Last Admin: 07/17/21 10:16 Dose: 10 ml Documented by: Sodium Chloride (Sodium Chloride 0.9% 10 Ml Flush Syringe) 10 ml IV PRN PRN PRN Reason: LINE FLUSH Physical Examination - Physical exam Narrative exam: Significant musculoskeletal findings relates to the left lower extremity here patient is noted to have moderate swelling proximal thigh tender on palpation active range of motion decreased distal neurovascular status intact Eyes: PERRL ENT: Positive: clear oral mucosa Respiratory effort: normal Respiratory: bilateral: CTA Rhythm: regular Heart Sounds: Positive: S1 & S2 General gastrointestinal: Positive: soft, non-tender, non-distended, normal bowel sounds Integumentary: clear, warm, dry Neurologic: Positive: CNII-XII intact, moves all extremities, gait normal. Negative: focal deficits Assessment and Plan Assessment displaced left femoral neck fracture Recommendations plan patient will require operative fixation with hemiarthroplasty
--- NOTE | 2021-07-17 14:57 | Procedure Note ---
Date of procedure: 07/17/21 Pre-op diagnosis: Displaced left femoral neck fracture Post-op diagnosis: same Procedure: [Left] Bipolar Hemiarthroplasty Procedure The patient was brought to the OR and placed on the OR table in supine position following induction and intubation by anesthesia the patient was placed in the [left] lateral decubitus position The [left] hip was then prepped and draped in the usual sterile manner a timeout procedure was done to identify the patient and the correct operative site. Next a lateral incision was made along the proximal femur was taken down sharply through skin and subcutaneous the fascia kin was seen and incised. A Charnley retractor was placed deep within the wound next the anterior capsule was entered the femoral neck fracture was seen the remaining portion of the femoral neck was then osteotomized in line with a stem template The femoral head was retrieved using a corkscrew device measuring the size of the femoral head and a 48 mm diameter was chosen, followed by reaming and broaching to a #9 stem utilizing a neutral neck and a 28 mm head and the construct was then reduced the hip was taken through a range of motion and was found to be stable. All components were removed. Final components were assembled and inserted the hip was then reduced and taken through a range of motion and again it was found to be stable next the wound was copiously irrigated a cocktail mixture of Toradol and morphine. Again and saline was in jected into the surrounding soft tissue for postop pain management following this the wound was closed in a standard routine fashion. Dressings were applied the patient tolerated the procedure there were no complications and he was sent to post anesthesia recovery Anesthesia: GETA Surgeon: TRACI TRACEY (Tiffanie Palacios, 1st assist) Estimated blood loss: other (300cc) Pathology: list (left femoral head sent to path) Specimen disposition: to lab Condition: stable Disposition: PACU
--- NOTE | 2021-07-17 15:36 | Post Anesthesia Evaluation ---
- Post Anesthesia Evaluation Patient Participated: Yes Airway Patent: Yes Stable Respiratory Function: Yes Nausea/Vomiting: No Temp > 96.8F: Yes Pain Manageable: Yes Adequeate Hydration: Yes Anesthesia Complications: No Block Receding Appropriately: Not Applicable Patient on Ventilator: No
--- NOTE | 2021-07-17 16:09 | Progress Note ---
Assessment and Plan Assessment and plan: 65 YO Male with Obesity, Melanoma presents to ED for evaluation. Patient reports "I fell at work". Patient states that he was in his usual state of health and tripped and fell while at work and landed on his left hip. Patient reports experiencing pain and was unable to rise to a standing position and bear weight on his left leg. Patient transported to [facility] via private vehicle for further care and evaluation of the aforementioned symptoms. The patient was seen and evaluated in the emergency department. Lab and imaging studies reviewed. Patient underwent CT scan of the left leg and was found to have a left femur fracture. Patient admitted to medical floor. Orthopedic surgery service consulted. Patient has fever, chills, chest pain, palpitation, productive cough, skin rash, recent ill contacts, or known exposure to COVID-19. No prior admission for review. All medication listed at time of admission has been reconciled. Advanced care planning conducted in ED. 07/17: Continue pain control, Patient preped for surgery, PT/OT following surgery. (1) Femur fracture, left Current Visit: No Status: Acute Plan to address problem: Orthopedic surgery service consulted, CT scan left lower extremity, pain control, supportive care, physical therapy consulted, patient pending surgical intervention as per surgical team. (2) Obesity hypoventilation syndrome Current Visit: Yes Status: Acute Plan to address problem: Balanced diet, increase physical activity at discharge, outpatient pulmonary follow-up for sleep study. (3) COVID-19 vaccine series completed Current Visit: No Status: Acute (4) DVT prophylaxis Current Visit: Yes Status: Acute Plan to address problem: SCDs bilateral lower extremities while in bed (5) Advance care planning Current Visit: Yes Status: Acute Plan to address problem: Disease education conducted, care plan discussed, diagnosis discussed, prognosis discussed, patient is full code, patient and family knowledge understanding agreement with care plan, +30 minutes. History Interval history: Patient seen and examined, resting comfortable. Being prepped for surgery still with pain with any movement of the left hip. Hospitalist Physical - Physical exam Narrative exam: General appearance: Present: mild distress, obese - EENT Eyes: Present: PERRL ENT: hearing intact, clear oral mucosa - Neck Neck: Present: supple, normal ROM - Respiratory Respiratory effort: normal Respiratory: bilateral: CTA - Cardiovascular Heart Sounds: Present: S1 & S2. Absent: rub, click - Extremities Extremities: pulses symmetrical, No edema, abnormal (Left leg pain) Peripheral Pulses: within normal limits - Abdominal General gastrointestinal: Present: soft, non-tender, non-distended, normal bowel sounds Male genitourinary: Present: normal - Integumentary Integumentary: Present: clear, warm, dry - Musculoskeletal Musculoskeletal: gait normal, strength equal bilaterally - Psychiatric Psychiatric: appropriate mood/affect, intact judgment & insight - Neurologic Neurologic: CNII-XII intact, moves all extremities - Constitutional Vitals: Temp Pulse Resp BP Pulse Ox 97.6 F 67 10 L 138/81 98 07/17/21 14:54 07/17/21 15:15 07/17/21 15:15 07/17/21 15:15 07/17/21 15:15 General appearance: Present: mild distress, obese Results - Labs CBC & Chem 7: 07/16/21 18:24 07/17/21 05:27 Labs: Laboratory Last Values WBC 14.9 K/mm3 (4.5-11.0) H 07/16/21 18:24 RBC 4.80 M/mm3 (3.65-5.03) 07/16/21 18:24 Hgb 14.6 gm/dl (11.8-15.2) 07/16/21 18:24 Hct 43.7 % (35.5-45.6) 07/16/21 18:24 MCV 91 fl (84-94) 07/16/21 18:24 MCH 30 pg (28-32) 07/16/21 18:24 MCHC 33 % (32-34) 07/16/21 18:24 RDW 14.3 % (13.2-15.2) 07/16/21 18:24 Plt Count 192 K/mm3 (140-440) 07/16/21 18:24 PT 12.4 Sec. (12.2-14.9) 07/16/21 18:24 INR 0.88 (0.87-1.13) 07/16/21 18:24 Sodium 136 mmol/L (137-145) L 07/17/21 05:27 Potassium 3.8 mmol/L (3.6-5.0) 07/17/21 05:27 Chloride 100.7 mmol/L (98-107) 07/17/21 05:27 Carbon Dioxide 25 mmol/L (22-30) 07/17/21 05:27 Anion Gap 14 mmol/L 07/17/21 05:27 BUN 16 mg/dL (9-20) 07/17/21 05:27 Creatinine 0.9 mg/dL (0.8-1.3) 07/17/21 05:27 Estimated GFR > 60 ml/min 07/17/21 05:27 BUN/Creatinine Ratio 18 % 07/17/21 05:27 Glucose 93 mg/dL (75-100) 07/17/21 05:27 Calcium 8.4 mg/dL (8.4-10.2) 07/17/21 05:27 Magnesium 1.70 mg/dL (1.7-2.3) 07/16/21 18:24 Total Creatine Kinase 277 units/L (55-170) H 07/16/21 18:24 Zimmer/IV: Voiding Method Urinal Active Medications - Current Medications Current Medications: Generic Name Dose Route Start Last Admin Trade Name Freq PRN Reason Stop Dose Admin Acetaminophen 650 mg 07/16/21 18:30 Acetaminophen 325 Mg Tab PO Q4H PRN Pain MILD(1-3)/Fever >100.5/MOTTA Albuterol 2.5 mg 07/16/21 18:30 Albuterol 2.5 Mg/3 Ml Nebu IH Q4HRT PRN Shortness Of Breath Cefazolin Sodium 2 gm 07/17/21 13:00 Cefazolin/Sterile Water 2 Gm/20 Ml Syringe IV 07/17/21 23:59 PREOP NR Fluticasone Propionate 100 mcg 07/16/21 22:01 Fluticasone Propionate Nasal [place] 16 Gm NS QDAY PRN Congestion Hydromorphone HCl 0.5 mg 07/16/21 18:30 07/17/21 07:48 Hydromorphone 1 Mg/1 Ml Inj IV 0.5 mg Q3H PRN Administration Pain , Severe (7-10) Sodium Chloride 1,000 mls @ 75 mls/hr 07/16/21 18:30 07/17/21 12:35 Nacl 0.9% 1000 Ml IV 75 mls/hr DIRECT JOSE Administration Ondansetron HCl 4 mg 07/16/21 18:30 07/16/21 20:03 Ondansetron 4 Mg/2 Ml Inj IV 4 mg Q8H PRN Administration Nausea And Vomiting Oxycodone/Acetaminophen 1 tab 07/16/21 18:30 07/16/21 22:28 Oxycodone /Acetaminophen 5-325mg Tab PO 1 tab Q6H PRN Administration Pain, Moderate (4-6) Pantoprazole Sodium 40 mg 07/17/21 10:00 07/17/21 10:16 Pantoprazole 40 Mg Tab PO 40 mg DAILY JOSE Administration Sodium Chloride 10 ml 07/16/21 22:00 07/17/21 10:16 Sodium Chloride 0.9% 10 Ml Flush Syringe IV 10 ml BID JOSE Administration Sodium Chloride 10 ml 07/16/21 18:30 Sodium Chloride 0.9% 10 Ml Flush Syringe IV PRN PRN LINE FLUSH
[2021-07-17] MEDS ORDERED: KETOROLAC 30 MG/1 ML INJ IV PRN (22:39)
[2021-07-17] MEDS ORDERED: oxyCODONE /ACETAMINOPHEN 5-325MG TAB PO PRN (22:39)
--- NOTE | 2021-07-17 23:47 | XRay Report ---
Left hip single view INDICATION: Left hip pain IMPRESSION: The left hip arthroplasty appears grossly intact. Gas noted within the soft tissues of th e left hip which may be secondary to recent surgery. Signer Name: Navjot Tucker MD Signed: 07/17/2021 11:42 PM Workstation Name: [id number]
[2021-07-18] MEDS: oxyCODONE /ACETAMINOPHEN 5-325MG TAB PO PRN (04:18)
[2021-07-18 06:30] LABS: Hematocrit 34.8 % (35.5-45.6); Hemoglobin 11.6 gm/dl (11.8-15.2)
[2021-07-18] MEDS: PANTOPRAZOLE 40 MG TAB PO SCH (11:38)
[2021-07-18] MEDS: ENOXAPARIN 40 MG/0.4 ML INJ SUB-Q SCH (11:38)
--- NOTE | 2021-07-18 13:54 | Progress Note ---
Assessment and Plan Assessment and plan: 65 YO Male with Obesity, Melanoma presents to ED for evaluation. Patient reports "I fell at work". Patient states that he was in his usual state of health and tripped and fell while at work and landed on his left hip. Patient reports experiencing pain and was unable to rise to a standing position and bear weight on his left leg. Patient transported to [facility] via private vehicle for further care and evaluation of the aforementioned symptoms. The patient was seen and evaluated in the emergency department. Lab and imaging studies reviewed. Patient underwent CT scan of the left leg and was found to have a left femur fracture. Patient admitted to medical floor. Orthopedic surgery service consulted. Patient has fever, chills, chest pain, palpitation, productive cough, skin rash, recent ill contacts, or known exposure to COVID-19. No prior admission for review. All medication listed at time of admission has been reconciled. Advanced care planning conducted in ED. 07/17: Continue pain control, Patient preped for surgery, PT/OT following surgery. 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 PT OT. Patient sitting up on the chair today. Anticipate discharge in 24 hours if okay with orthopedic surgeon. Awaiting disposition plan by rehab team. Anticoagulation for DVT prophylaxis (1) Femur fracture, left Current Visit: No Status: Acute Plan to address problem: Orthopedic surgery service consulted, CT scan left lower extremity, pain control, supportive care, physical therapy consulted, patient pending surgical intervention as per surgical team. (2) Obesity hypoventilation syndrome Current Visit: Yes Status: Acute Plan to address problem: Balanced diet, increase physical activity at discharge, outpatient pulmonary follow-up for sleep study. (3) COVID-19 vaccine series completed Current Visit: No Status: Acute (4) DVT prophylaxis Current Visit: Yes Status: Acute Plan to address problem: SCDs bilateral lower extremities while in bed (5) Advance care planning Current Visit: Yes Status: Acute Plan to address problem: Disease education conducted, care plan discussed, diagnosis discussed, prognosis discussed, patient is full code, patient and family knowledge understanding agreement with care plan, +30 minutes. Hospitalist Physical - Physical exam Narrative exam: General appearance: Present: mild distress, obese - EENT Eyes: Present: PERRL ENT: hearing intact, clear oral mucosa - Neck Neck: Present: supple, normal ROM - Respiratory Respiratory effort: normal Respiratory: bilateral: CTA - Cardiovascular Heart Sounds: Present: S1 & S2. Absent: rub, click - Extremities Extremities: pulses symmetrical, No edema, dressing to the left lower extremity no edema noted. Peripheral Pulses: within normal limits - Abdominal General gastrointestinal: Present: soft, non-tender, non-distended, normal bowel sounds Male genitourinary: Present: normal - Integumentary Integumentary: Present: clear, warm, dry - Musculoskeletal Musculoskeletal: gait normal, strength equal bilaterally - Psychiatric Psychiatric: appropriate mood/affect, intact judgment & insight - Neurologic Neurologic: CNII-XII intact, moves all extremities - Constitutional Vitals: Temp Pulse Resp BP Pulse Ox 98.1 F 99 H 18 103/70 95 07/18/21 10:12 07/18/21 10:12 07/18/21 10:12 07/18/21 10:12 07/18/21 10:12 General appearance: Present: mild distress, obese Results - Labs CBC & Chem 7: 07/18/21 05:53 07/17/21 05:27 Labs: Laboratory Last Values WBC 14.9 K/mm3 (4.5-11.0) H 07/16/21 18:24 RBC 4.80 M/mm3 (3.65-5.03) 07/16/21 18:24 Hgb 11.6 gm/dl (11.8-15.2) L D 07/18/21 05:53 Hct 34.8 % (35.5-45.6) L D 07/18/21 05:53 MCV 91 fl (84-94) 07/16/21 18:24 MCH 30 pg (28-32) 07/16/21 18:24 MCHC 33 % (32-34) 07/16/21 18:24 RDW 14.3 % (13.2-15.2) 07/16/21 18:24 Plt Count 192 K/mm3 (140-440) 07/16/21 18:24 PT 12.4 Sec. (12.2-14.9) 07/16/21 18:24 INR 0.88 (0.87-1.13) 07/16/21 18:24 Sodium 136 mmol/L (137-145) L 07/17/21 05:27 Potassium 3.8 mmol/L (3.6-5.0) 07/17/21 05:27 Chloride 100.7 mmol/L (98-107) 07/17/21 05:27 Carbon Dioxide 25 mmol/L (22-30) 07/17/21 05:27 Anion Gap 14 mmol/L 07/17/21 05:27 BUN 16 mg/dL (9-20) 07/17/21 05:27 Creatinine 0.9 mg/dL (0.8-1.3) 07/17/21 05:27 Estimated GFR > 60 ml/min 07/17/21 05:27 BUN/Creatinine Ratio 18 % 07/17/21 05:27 Glucose 93 mg/dL (75-100) 07/17/21 05:27 Calcium 8.4 mg/dL (8.4-10.2) 07/17/21 05:27 Magnesium 1.70 mg/dL (1.7-2.3) 07/16/21 18:24 Total Creatine Kinase 277 units/L (55-170) H 07/16/21 18:24 Zimmer/IV: Voiding Method Urinal Active Medications - Current Medications Current Medications: Generic Name Dose Route Start Last Admin Trade Name Freq PRN Reason Stop Dose Admin Acetaminophen 650 mg 07/16/21 18:30 Acetaminophen 325 Mg Tab PO Q4H PRN Pain MILD(1-3)/Fever >100.5/MOTTA Albuterol 2.5 mg 07/16/21 18:30 Albuterol 2.5 Mg/3 Ml Nebu IH Q4HRT PRN Shortness Of Breath Enoxaparin Sodium 40 mg 07/18/21 10:00 07/18/21 11:38 Enoxaparin 40 Mg/0.4 Ml Inj SUB-Q 40 mg QDAY JOSE Administration Fluticasone Propionate 100 mcg 07/16/21 22:01 Fluticasone Propionate Nasal [place] 16 Gm NS QDAY PRN Congestion Sodium Chloride 1,000 mls @ 75 mls/hr 07/16/21 18:30 07/17/21 20:43 Nacl 0.9% 1000 Ml IV 75 mls/hr DIRECT JOSE Administration Ketorolac Tromethamine 15 mg 07/17/21 22:39 Ketorolac 30 Mg/1 Ml Inj IV 07/22/21 22:38 Q6H PRN Pain, Moderate (4-6) Morphine Sulfate 4 mg 07/17/21 22:39 Morphine 4 Mg/1 Ml Inj IV Q4H PRN Pain , Severe (7-10) Ondansetron HCl 4 mg 07/16/21 18:30 07/16/21 20:03 Ondansetron 4 Mg/2 Ml Inj IV 4 mg Q8H PRN Administration Nausea And Vomiting Oxycodone/Acetaminophen 1 tab 07/16/21 18:30 07/18/21 04:18 Oxycodone /Acetaminophen 5-325mg Tab PO 1 tab Q6H PRN Administration Pain, Moderate (4-6) Pantoprazole Sodium 40 mg 07/17/21 10:00 07/18/21 11:38 Pantoprazole 40 Mg Tab PO 40 mg DAILY JOSE Administration Sodium Chloride 10 ml 07/16/21 22:00 07/18/21 11:38 Sodium Chloride 0.9% 10 Ml Flush Syringe IV 10 ml BID JOSE Administration Sodium Chloride 10 ml 07/16/21 18:30 Sodium Chloride 0.9% 10 Ml Flush Syringe IV PRN PRN LINE FLUSH
[2021-07-18] MEDS: MORPHINE 4 MG/1 ML INJ IV PRN ×2 (14:45→21:49)
--- NOTE | 2021-07-18 16:40 | Progress Note ---
Assessment and Plan s/p bipolar hip replacement doing well continue PT and observation Subjective Date of service: 07/18/21 Interval history: c/o incisional pain otherwise ok Objective Vital signs: Vital Signs - 12hr 07/18/21 07/18/21 07:34 10:12 Temperature 98.1 F Pulse Rate 99 H Respiratory 18 Rate Blood Pressure 103/70 O2 Sat by Pulse 95 95 Oximetry Incision: clean and dry Weight bearing status: as tolerated - Labs CBC & BMP: 07/18/21 05:53 07/17/21 05:27 Labs: Abnormal lab results 07/18/21 Range/Units 05:53 Hgb 11.6 L D (11.8-15.2) gm/dl Hct 34.8 L D (35.5-45.6) %
[2021-07-18] MEDS: SODIUM CHLORIDE 0.9% 1000 ML 1,000 ML IV SCH (21:41)
[2021-07-19] MEDS: MORPHINE 4 MG/1 ML INJ IV PRN ×2 (06:57→11:17)
[2021-07-19] MEDS: ENOXAPARIN 40 MG/0.4 ML INJ SUB-Q SCH (11:17)
[2021-07-19] MEDS: PANTOPRAZOLE 40 MG TAB PO SCH (11:17)
--- NOTE | 2021-07-19 12:56 | Progress Note ---
Assessment and Plan Assessment and plan: 65 YO Male with Obesity, Melanoma presents to ED for evaluation. Patient reports "I fell at work". Patient states that he was in his usual state of health and tripped and fell while at work and landed on his left hip. Patient reports experiencing pain and was unable to rise to a standing position and bear weight on his left leg. Patient transported to [facility] via private vehicle for further care and evaluation of the aforementioned symptoms. The patient was seen and evaluated in the emergency department. Lab and imaging studies reviewed. Patient underwent CT scan of the left leg and was found to have a left femur fracture. Patient admitted to medical floor. Orthopedic surgery service consulted. Patient has fever, chills, chest pain, palpitation, productive cough, skin rash, recent ill contacts, or known exposure to COVID-19. No prior admission for review. All medication listed at time of admission has been reconciled. Advanced care planning conducted in ED. 07/17: Continue pain control, Patient preped for surgery, PT/OT following surgery. 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 PT OT. Patient sitting up on the chair today. Anticipate discharge in 24 hours if okay with orthopedic surgeon. Awaiting disposition plan by rehab team. Anticoagulation for DVT prophylaxis 07/19: Patient is postop day 2 s/p bipolar hip replacement. Discussed with case management about discharge planning this is a workers comp case and is unresolved awaiting for the Worker's Comp. [employer] to arrange home PT OT. Once this is done patient can be discharged per Ortho. Continue closely appropriate anticoagulation continue PT and observation (1) Femur fracture, left Current Visit: No Status: Acute Plan to address problem: Orthopedic surgery service consulted, CT scan left lower extremity, pain control, supportive care, physical therapy consulted, patient pending surgical intervention as per surgical team. (2) Obesity hypoventilation syndrome Current Visit: Yes Status: Acute Plan to address problem: Balanced diet, increase physical activity at discharge, outpatient pulmonary follow-up for sleep study. (3) COVID-19 vaccine series completed Current Visit: No Status: Acute (4) DVT prophylaxis Current Visit: Yes Status: Acute Plan to address problem: SCDs bilateral lower extremities while in bed (5) Advance care planning Current Visit: Yes Status: Acute Plan to address problem: Disease education conducted, care plan discussed, diagnosis discussed, prognosis discussed, patient is full code, patient and family knowledge understanding agreement with care plan, +30 minutes. History Interval history: Patient seen and examined, resting comfortable. No distress at this time lying comfortably in the bed Hospitalist Physical - Physical exam Narrative exam: General appearance: Present: No distress distress, obese - EENT Eyes: Present: PERRL ENT: hearing intact, clear oral mucosa - Neck Neck: Present: supple, normal ROM - Respiratory Respiratory effort: normal Respiratory: bilateral: CTA - Cardiovascular Heart Sounds: Present: S1 & S2. Absent: rub, click - Extremities Extremities: pulses symmetrical, No edema, dressing to the left lower extremity no edema noted. Peripheral Pulses: within normal limits - Abdominal General gastrointestinal: Present: soft, non-tender, non-distended, normal bowel sounds Male genitourinary: Present: normal - Integumentary Integumentary: Present: clear, warm, dry - Musculoskeletal Musculoskeletal: gait normal, strength equal bilaterally - Psychiatric Psychiatric: appropriate mood/affect, intact judgment & insight - Neurologic Neurologic: CNII-XII intact, moves all extremities - Constitutional Vitals: Temp Pulse Resp BP Pulse Ox 98.5 F 75 20 193/99 97 07/19/21 11:48 07/19/21 11:48 07/19/21 11:48 07/19/21 11:48 07/19/21 11:48 General appearance: Present: mild distress, obese Results - Labs CBC & Chem 7: 07/18/21 05:53 07/17/21 05:27 Labs: Laboratory Last Values WBC 14.9 K/mm3 (4.5-11.0) H 07/16/21 18:24 RBC 4.80 M/mm3 (3.65-5.03) 07/16/21 18:24 Hgb 11.6 gm/dl (11.8-15.2) L D 07/18/21 05:53 Hct 34.8 % (35.5-45.6) L D 07/18/21 05:53 MCV 91 fl (84-94) 07/16/21 18:24 MCH 30 pg (28-32) 07/16/21 18:24 MCHC 33 % (32-34) 07/16/21 18:24 RDW 14.3 % (13.2-15.2) 07/16/21 18:24 Plt Count 192 K/mm3 (140-440) 07/16/21 18:24 PT 12.4 Sec. (12.2-14.9) 07/16/21 18:24 INR 0.88 (0.87-1.13) 07/16/21 18:24 Sodium 136 mmol/L (137-145) L 07/17/21 05:27 Potassium 3.8 mmol/L (3.6-5.0) 07/17/21 05:27 Chloride 100.7 mmol/L (98-107) 07/17/21 05:27 Carbon Dioxide 25 mmol/L (22-30) 07/17/21 05:27 Anion Gap 14 mmol/L 07/17/21 05:27 BUN 16 mg/dL (9-20) 07/17/21 05:27 Creatinine 0.9 mg/dL (0.8-1.3) 07/17/21 05:27 Estimated GFR > 60 ml/min 07/17/21 05:27 BUN/Creatinine Ratio 18 % 07/17/21 05:27 Glucose 93 mg/dL (75-100) 07/17/21 05:27 Calcium 8.4 mg/dL (8.4-10.2) 07/17/21 05:27 Magnesium 1.70 mg/dL (1.7-2.3) 07/16/21 18:24 Total Creatine Kinase 277 units/L (55-170) H 07/16/21 18:24 Zimmer/IV: Voiding Method Urinal Active Medications - Current Medications Current Medications: Generic Name Dose Route Start Last Admin Trade Name Freq PRN Reason Stop Dose Admin Acetaminophen 650 mg 07/16/21 18:30 Acetaminophen 325 Mg Tab PO Q4H PRN Pain MILD(1-3)/Fever >100.5/MOTTA Albuterol 2.5 mg 07/16/21 18:30 Albuterol 2.5 Mg/3 Ml Nebu IH Q4HRT PRN Shortness Of Breath Enoxaparin Sodium 40 mg 07/18/21 10:00 07/19/21 11:17 Enoxaparin 40 Mg/0.4 Ml Inj SUB-Q 40 mg QDAY JOSE Administration Fluticasone Propionate 100 mcg 07/16/21 22:01 Fluticasone Propionate Nasal [place] 16 Gm NS QDAY PRN Congestion Sodium Chloride 1,000 mls @ 75 mls/hr 07/16/21 18:30 07/18/21 21:41 Nacl 0.9% 1000 Ml IV 75 mls/hr DIRECT JOSE Administration Ketorolac Tromethamine 15 mg 07/17/21 22:39 Ketorolac 30 Mg/1 Ml Inj IV 07/22/21 22:38 Q6H PRN Pain, Moderate (4-6) Morphine Sulfate 4 mg 07/17/21 22:39 07/19/21 11:17 Morphine 4 Mg/1 Ml Inj IV 4 mg Q4H PRN Administration Pain , Severe (7-10) Ondansetron HCl 4 mg 07/16/21 18:30 07/16/21 20:03 Ondansetron 4 Mg/2 Ml Inj IV 4 mg Q8H PRN Administration Nausea And Vomiting Oxycodone/Acetaminophen 1 tab 07/16/21 18:30 07/18/21 04:18 Oxycodone /Acetaminophen 5-325mg Tab PO 1 tab Q6H PRN Administration Pain, Moderate (4-6) Pantoprazole Sodium 40 mg 07/17/21 10:00 07/19/21 11:17 Pantoprazole 40 Mg Tab PO 40 mg DAILY JOSE Administration Sodium Chloride 10 ml 07/16/21 22:00 07/19/21 11:26 Sodium Chloride 0.9% 10 Ml Flush Syringe IV 10 ml BID JOSE Administration Sodium Chloride 10 ml 07/16/21 18:30 Sodium Chloride 0.9% 10 Ml Flush Syringe IV PRN PRN LINE FLUSH
[2021-07-20] MEDS: MORPHINE 4 MG/1 ML INJ IV PRN (06:25)
--- NOTE | 2021-07-20 08:45 | Progress Note ---
Assessment and Plan Assessment and plan: 65 YO Male with Obesity, Melanoma presents to ED for evaluation. Patient reports "I fell at work". Patient states that he was in his usual state of health and tripped and fell while at work and landed on his left hip. Patient reports experiencing pain and was unable to rise to a standing position and bear weight on his left leg. Patient transported to [facility] via private vehicle for further care and evaluation of the aforementioned symptoms. The patient was seen and evaluated in the emergency department. Lab and imaging studies reviewed. Patient underwent CT scan of the left leg and was found to have a left femur fracture. Patient admitted to medical floor. Orthopedic surgery service consulted. Patient has fever, chills, chest pain, palpitation, productive cough, skin rash, recent ill contacts, or known exposure to COVID-19. No prior admission for review. All medication listed at time of admission has been reconciled. Advanced care planning conducted in ED. 07/17: Continue pain control, Patient preped for surgery, PT/OT following surgery. 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 PT OT. Patient sitting up on the chair today. Anticipate discharge in 24 hours if okay with orthopedic surgeon. Awaiting disposition plan by rehab team. Anticoagulation for DVT prophylaxis 07/19: Patient is postop day 2 s/p bipolar hip replacement. Discussed with case management about discharge planning this is a workers comp case and is unresolved awaiting for the Worker's Comp. company to arrange home PT OT. Once this is done patient can be discharged per Ortho. Continue closely appropriate anticoagulation continue PT and observation 07/20; status post left bipolar hip replacement. Patient can be discharged home once home health PT OT is arranged. I have discussed with case management and said she could not arrange home health PT OT because patient needs PT OT to be arranged through Worker's Compensation. Case management will discuss with the son and will let me know once is arranged. (1) Femur fracture, left Current Visit: No Status: Acute Plan to address problem: Orthopedic surgery service consulted, CT scan left lower extremity, pain control , supportive care, physical therapy consulted, patient pending surgical intervention as per surgical team. (2) Obesity hypoventilation syndrome Current Visit: Yes Status: Acute Plan to address problem: Balanced diet, increase physical activity at discharge, outpatient pulmonary follow-up for sleep study. (3) COVID-19 vaccine series completed Current Visit: No Status: Acute (4) DVT prophylaxis Current Visit: Yes Status: Acute Plan to address problem: SCDs bilateral lower extremities while in bed (5) Advance care planning Current Visit: Yes Status: Acute Plan to address problem: Disease education conducted, care plan discussed, diagnosis discussed, prognosis discussed, patient is full code, patient and family knowledge understanding ag reement with care plan, +30 minutes. History Interval history: Patient was seen and evaluated this morning Patient does not have any complaints Hospitalist Physical - Physical exam Narrative exam: Not in cardiopulmonary distress. The patient appeared well nourished and normally developed. Vital signs as documented. Head exam is unremarkable. No scleral icterus . Neck is without jugular venous distension, thyromegaly, or carotid bruits. Lungs are clear to auscultation. Cardiac exam reveals regular rate and Rhythm. Abdominal exam reveals normal bowel sounds, nontender, no organomegaly. Extremities are nonedematous and both femoral and pedal pulses are normal. 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 No focal weakness. - Constitutional Vitals: Temp Pulse Resp BP Pulse Ox 98.2 F 74 18 124/50 97 07/20/21 07:49 07/20/21 07:49 07/20/21 07:49 07/20/21 07:49 07/20/21 07:49 General appearance: Present: mild distress, obese Results - Labs CBC & Chem 7: 07/18/21 05:53 07/17/21 05:27 Labs: Laboratory Last Values WBC 14.9 K/mm3 (4.5-11.0) H 07/16/21 18:24 RBC 4.80 M/mm3 (3.65-5.03) 07/16/21 18:24 Hgb 11.6 gm/dl (11.8-15.2) L D 07/18/21 05:53 Hct 34.8 % (35.5-45.6) L D 07/18/21 05:53 MCV 91 fl (84-94) 07/16/21 18:24 MCH 30 pg (28-32) 07/16/21 18:24 MCHC 33 % (32-34) 07/16/21 18:24 RDW 14.3 % (13.2-15.2) 07/16/21 18:24 Plt Count 192 K/mm3 (140-440) 07/16/21 18:24 PT 12.4 Sec. (12.2-14.9) 07/16/21 18:24 INR 0.88 (0.87-1.13) 07/16/21 18:24 Sodium 136 mmol/L (137-145) L 07/17/21 05:27 Potassium 3.8 mmol/L (3.6-5.0) 07/17/21 05:27 Chloride 100.7 mmol/L (98-107) 07/17/21 05:27 Carbon Dioxide 25 mmol/L (22-30) 07/17/21 05:27 Anion Gap 14 mmol/L 07/17/21 05:27 BUN 16 mg/dL (9-20) 07/17/21 05:27 Creatinine 0.9 mg/dL (0.8-1.3) 07/17/21 05:27 Estimated GFR > 60 ml/min 07/17/21 05:27 BUN/Creatinine Ratio 18 % 07/17/21 05:27 Glucose 93 mg/dL (75-100) 07/17/21 05:27 Calcium 8.4 mg/dL (8.4-10.2) 07/17/21 05:27 Magnesium 1.70 mg/dL (1.7-2.3) 07/16/21 18:24 Total Creatine Kinase 277 units/L (55-170) H 07/16/21 18:24 Zimmer/IV: Voiding Method Urinal Active Medications - Current Medications Current Medications: Generic Name Dose Route Start Last Admin Trade Name Freq PRN Reason Stop Dose Admin Acetaminophen 650 mg 07/16/21 18:30 Acetaminophen 325 Mg Tab PO Q4H PRN Pain MILD(1-3)/Fever >100.5/MOTTA Albuterol 2.5 mg 07/16/21 18:30 Albuterol 2.5 Mg/3 Ml Nebu IH Q4HRT PRN Shortness Of Breath Enoxaparin Sodium 40 mg 07/18/21 10:00 07/19/21 11:17 Enoxaparin 40 Mg/0.4 Ml Inj SUB-Q 40 mg QDAY JOSE Administration Fluticasone Propionate 100 mcg 07/16/21 22:01 Fluticasone Propionate Nasal [place] 16 Gm NS QDAY PRN Congestion Sodium Chloride 1,000 mls @ 75 mls/hr 07/16/21 18:30 07/18/21 21:41 Nacl 0.9% 1000 Ml IV 75 mls/hr DIRECT JOSE Administration Ketorolac Tromethamine 15 mg 07/17/21 22:39 Ketorolac 30 Mg/1 Ml Inj IV 07/22/21 22:38 Q6H PRN Pain, Moderate (4-6) Morphine Sulfate 4 mg 07/17/21 22:39 07/20/21 06:25 Morphine 4 Mg/1 Ml Inj IV 4 mg Q4H PRN Administration Pain , Severe (7-10) Ondansetron HCl 4 mg 07/16/21 18:30 07/16/21 20:03 Ondansetron 4 Mg/2 Ml Inj IV 4 mg Q8H PRN Administration Nausea And Vomiting Oxycodone/Acetaminophen 1 tab 07/16/21 18:30 07/18/21 04:18 Oxycodone /Acetaminophen 5-325mg Tab PO 1 tab Q6H PRN Administration Pain, Moderate (4-6) Pantoprazole Sodium 40 mg 07/17/21 10:00 07/19/21 11:17 Pantoprazole 40 Mg Tab PO 40 mg DAILY JOSE Administration Sodium Chloride 10 ml 07/16/21 22:00 07/19/21 22:05 Sodium Chloride 0.9% 10 Ml Flush Syringe IV 10 ml BID JOSE Administration Sodium Chloride 10 ml 07/16/21 18:30 Sodium Chloride 0.9% 10 Ml Flush Syringe IV PRN PRN LINE FLUSH
[2021-07-20] MEDS: ENOXAPARIN 40 MG/0.4 ML INJ SUB-Q SCH (09:42)
[2021-07-20] MEDS: PANTOPRAZOLE 40 MG TAB PO SCH (09:42)
--- NOTE | 2021-07-20 12:48 | Discharge Summary ---
Providers - Providers Date of Admission: 07/16/21 18:30 Date of discharge: 07/20/21 Attending physician: PING GARCIA MD 07/16/21 18:12 Consult to Physician [CONS] Urgent Comment: Consulting Provider: TRACI TRACEY Physician Instructions: Reason For Exam: left femur fracture 07/16/21 20:29 Physical Therapy Evaluation and Treat [CONS] Routine Comment: Reason For Exam: Weakness 07/17/21 22:44 Physical Therapy Evaluation and Treat [CONS] Routine Comment: Reason For Exam: post op evaluation Weight bearing status?: Full wt bearing Assistive devices?: Yes If so list: Walker Primary care physician: ANIMAL HERDER Hospitalization Reason for admission: Left knee fracture Condition: Good Procedures: Status post left knee bipolar arthroplasty Hospital course: 65 YO Male with Obesity, Melanoma presents to ED for evaluation. Patient reports "I fell at work". Patient states that he was in his usual state of health and tripped and fell while at work and landed on his left hip. Patient reports experiencing pain and was unable to rise to a standing position and bear weight on his left leg. Patient transported to [facility] via private vehicle for further care and evaluation of the aforementioned symptoms. The patient was seen and evaluated in the emergency department. Lab and imaging studies reviewed. Patient underwent CT scan of the left leg and was found to have a left femur fracture. Patient admitted to medical floor. Orthopedic surgery service consulted. Patient has fever, chills, chest pain, palpitation, productive cough, skin rash, recent ill contacts, or known exposure to COVID-19. No prior admission for review. All medication listed at time of admission has been reconciled. Advanced care planning conducted in ED. 07/17: Continue pain control, Patient preped for surgery, PT/OT following surgery. 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 PT OT. Patient sitting up on the chair today. Anticipate discharge in 24 hours if okay with orthopedic surgeon. Awaiting disposition plan by rehab team. Anticoagulation for DVT prophylaxis 07/19: Patient is postop day 2 s/p bipolar hip replacement. Discussed with case management about discharge planning this is a workers comp case and is unresolved awaiting for the Worker's Comp. company to arrange home PT OT. Once this is done patient can be discharged per Ortho. Continue closely appropriate anticoagulation continue PT and observation 07/20; status post left bipolar hip replacement. Patient can be discharged home once home health PT OT is arranged. I have discussed with case management and said she could not arrange home health PT OT because patient needs PT OT to be arranged through Worker's Compensation. Case management will discuss with the son and will let me know once is arranged. (1) Femur fracture, left Current Visit: No Status: Acute Plan to address problem: Orthopedic surgery service consulted, CT scan left lower extremity, pain c ontrol, supportive care, physical therapy consulted, patient pending surgical intervention as per surgical team. (2) Obesity hypoventilation syndrome Current Visit: Yes Status: Acute Plan to address problem: Balanced diet, increase physical activity at discharge, outpatient pulmonary follow-up for sleep study. (3) COVID-19 vaccine series completed Current Visit: No Status: Acute (4) DVT prophylaxis Current Visit: Yes Status: Acute Plan to address problem: SCDs bilateral lower extremities while in bed (5) Advance care planning Current Visit: Yes Status: Acute Plan to address problem: Disease education conducted, care plan discussed, diagnosis discussed, prognosis discussed, patient is full code, patient and family knowledge understanding agreement with care plan, +30 minutes. Discussed with case management and they are not able to arrange out patient HH. I wrote a prescription for o/p physical therapy and discharged. Disposition: HOME HEALTH CARE SERVICE Final Discharge Diagnosis (Prints w/discharge instructions): Left hip fracture Time spent for discharge: 35 minutes - Discharge Diagnoses (1) Fall Status: Acute (2) Femur fracture, left Status: Acute Core Measure Documentation - Palliative Care Palliative Care/ Comfort Measures: Not Applicable - Core Measures Any of the following diagnoses?: none Exam - Physical Exam Narrative exam: Not in cardiopulmonary distress. The patient appeared well nourished and normally developed. Vital signs as documented. Head exam is unremarkable. No scleral icterus . Neck is without jugular venous distension, thyromegaly, or carotid bruits. Lungs are clear to auscultation. Cardiac exam reveals regular rate and Rhythm. Abdominal exam reveals normal bowel sounds, nontender, no organomegaly. Extremities are nonedematous and both femoral and pedal pulses are normal. INSIGHT DIRECTOR: Alert and oriented 3. No focal weakness. - Constitutional Vitals: Temp Pulse Resp BP Pulse Ox 97.9 F 72 18 120/56 96 07/20/21 12:05 07/20/21 12:05 07/20/21 12:05 07/20/21 12:05 07/20/21 12:05 Plan Activity: advance as tolerated Weight Bearing Status: Weight Bear as Tolerated Diet: regular Durable Medical Equipment Needed Upon Discharge: Walker-Rolling Follow up with: PRIMARY MD IWONA [Primary Care Provider] - 7 Days TRACI TRACEY MD [Staff Physician] - 7 Days Prescriptions: oxyCODONE /ACETAMINOPHEN [Percocet 5/325 mg] 1 tab PO Q6H PRN #14 tablet PRN Reason: Pain, Moderate (4-6) Other Discharge Orders: Physicial Therapy (Amb) Location: None Selected
[2021-07-20 16:34] VITALS: BP 117/80
== END 2021-07-20 16:00 | DRG 522 ==
LOC: ED 14:53 → 3A 18:30 → 4A 07-17 17:30
PROVIDERS: ADMIT Internal Medicine; ATTEND Internal Medicine
PROC: 0SRS0JZ Replacement of Left Hip Joint, Femoral Surface with Synthetic Substitute, Open Approach (ICD-10-PCS; principal; 2021-07-17)
DX: S72.002A Fracture of unspecified part of neck of left femur, initial encounter for closed fracture (principal); E66.2 Morbid (severe) obesity with alveolar hypoventilation; K21.9 Gastro-esophageal reflux disease without esophagitis; W18.39XA Other fall on same level, initial encounter; Y93.89 Activity, other specified; Z68.32 Body mass index [BMI] 32.0-32.9, adult; Z90.49 Acquired absence of other specified parts of digestive tract; Z82.49 Family history of ischemic heart disease and other diseases of the circulatory system; Y92.69 Other specified industrial and construction area as the place of occurrence of the external cause; Y99.8 Other external cause status
CPT/HCPCS: 36415; 72131; 72170; 80048; 82550; 83735; 85014; 85018; 85027; 85610; 88305; G0378; C1776; J0330; J1170; J1650; J1885; J2270; J2370; J2405; J2704; J3010; J7030; J7120

== ENCOUNTER 2021-12-14 10:02 | Outpatient (CLI) | payer OTHER ==
--- NOTE | 2021-12-14 11:34 | XRay Report ---
LEFT HIP 2 VIEWS LEFT FEMUR 2 VIEWS INDICATION: Fracture Of Unspecified Part Of Femoral Neck. COMPARISON: 07/16/2021 IMPRESSION: Stable appearance of the left hip prosthesis. There is normal articulation at the left hip. The hardware appears well applied. The left femur is intact with no evidence for fracture or bon y lesion. The soft tissues are unremarkable. Signer Name: Addy Hallman Jr, MD Signed: 12/14/2021 11:30 AM Workstation Name: [id number]
== END 2021-12-14 10:03 | disposition home or self-care (01) ==
LOC: XRAY 10:02
PROVIDERS: ATTEND Orthopaedic Surgery
DX: S72.002A Fracture of unspecified part of neck of left femur, initial encounter for closed fracture (principal); Z96.642 Presence of left artificial hip joint; X58.XXXA Exposure to other specified factors, initial encounter; Y93.89 Activity, other specified; Y92.89 Other specified places as the place of occurrence of the external cause; Y99.8 Other external cause status